=== PATIENT | female | born 1985 | race Caucasian/White ===

== ENCOUNTER 2020-12-24 03:40 | Inpatient (IN) | payer SELFPAY ==
[2020-12-24 03:55] VITALS: BP 133/83; PULSE 76; RESP 18; TEMP 36.4; O2SAT 96
[2020-12-24 04:17] VITALS: BMI 19.3
[2020-12-24 06:00] VITALS: BP 133/83; PULSE 76; RESP 18; TEMP 36.4
--- NOTE | 2020-12-24 06:54 | PC.NURSE ---
35/F SI VOLUNTARY DIRECT ADMIT FROM [facility] NO HEROIN DETECTED IN UDS / +METH PT IS DEPRESSED AND SI, STATES THAT SHE INGESTED HEROIN IN ATTEMPT TO END HER LIFE. PT HAS HX OF BORDERLINE PERSONALITY DISORDER, OCD, AGORAPHOBIA, DEPRESSION, AND SUFFERS FROM ANXIETY ATTACKS OFTEN. HAS EXTENSIVE DRUG ABUSE HX. REPORTS LOSING HER SON A YEAR AGO TO HER PARENTS WHO HAVE SINCE ADOPTED HIM AND REFUSE TO ALLOW HER TO HAVE VISITATION. PT REPORTS THE FINANCIAL CONTROL OF HER AND FEARS THE IMPENDING EVICTION THEY ARE FACING. PT STATES HER RELATIONSHIP IS OVER, ?HER HAS NOW LEFT HER AND THERE IS NOTHING LEFT FOR HER TO LIVE FOR.? PT HAS HAD A GASTRIC SLEEVE,(NO NSAIDS) SHE IS ANEMIC, HAIR IS FALLING OUT AND TEETH ARE LOOSE D/T MALNOURISHMENT, REPORTS CONSTIPATION AND NO BM IN 2 WEEKS DESPITE THE USE OF MIRALAX. PT HAS A WBC OF 19.4 AT [facility] ON ADMIT, IT IS DOWN TO 10.4
[2020-12-24 13:39] VITALS: BP 130/78; PULSE 95; RESP 16; TEMP 36.3; O2SAT 99
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
[2020-12-24] MEDS: ondansetron 4 MG Tablet PO (20:23)
[2020-12-24 22:00] VITALS: BP 121/86; PULSE 79; RESP 17; TEMP 37.2; O2SAT 97
[2020-12-24] MEDS: hyDROXYzine 25 mg Capsule 50 MG PO (23:36)
[2020-12-24] MEDS: trazodone 50 mg Tablet PO (23:37)
--- NOTE | 2020-12-24 23:41 | PC.NURSE ---
Patient given Vistaril 50 mg po for complaint of anxiety and Trazodone 50 mg po for complaint of insomnia. Also given a snack per her request.
[2020-12-25 06:00] VITALS: BP 124/82; PULSE 84; RESP 17; TEMP 36.7; O2SAT 98
[2020-12-25] MEDS: sertraline 50 mg Tablet PO (08:44)
[2020-12-25 14:00] VITALS: BP 124/82; PULSE 84; RESP 17; TEMP 36.7; O2SAT 98
--- NOTE | 2020-12-25 15:30 | PM.NPN ---
Subjective NPU Subjective: Interval history: The patient is only somewhat cooperative with the exam today. She says that she is in an irritable mood, but not feeling depressed. She did not sleep well and is tired. She denies suicidal and homicidal ideation. She has no medication side effects after starting on Zoloft. Mental Status Exam MSE Comments: I met with the patient in their room, and she stated laying in bed with minimal responses throughout the entirety of the exam. She minimizes any difficulties which brought her into the hospital, and feels that she does not need treatment. No psychomotor agitation or retardation Speech is quiet Alert, oriented to person and situation Attention and concentration were only fair. Memory is adequate for the interview Mood is irritable. Affect is when resistant. Thought process is logical and goal directed. Thought content No auditory or visual hallucinations, no suicidal ideation or homicidal ideation. Insight and judgment are limited. She is in denial of her psychiatric issues. Vitals/I&O/Wt Last Vital Signs Temp 98.0 F 12/25/20 14:00 Pulse 84 12/25/20 14:00 Resp 17 12/25/20 14:00 BP 124/82 12/25/20 14:00 Pulse Ox 98 12/25/20 14:00 Weight last 48 hrs Weight 61.235 kg A&P Assessment and plan (1) Major depressive disorder, recurrent, severe w/o psychotic behavior: Status: Acute (2) Suicide attempt by heroin overdose: Status: Acute (3) Heroin abuse: Status: Acute (4) Marijuana abuse: Status: Acute (5) Borderline personality disorder: Status: Acute Additional A&P Information The patient is a 35-year-old woman with major depression, and heroin and marijuana use disorder, who has a generalized sense of helplessness about all of the tasks required for managing her life. She feels overwhelmed and victimized and unable to care for herself. She is willing to take medication and to attend substance use rehab. 1. Start Zoloft 50 mg daily for depression. Pt understands risks, benefits, side effects and consents. 2. Continue every 15 minute checks for safety. 3. Encourage individual, group and milieu therapies. 4. Encourage sober living treatment after discharge at the highest level of care to which he is willing to commit. Involuntary Hold Information 96 Hour Hold: 96 Hour Involuntary Admission: No Attestations NPU Medical Necessity Statement*: Psychiatric hospitalization is medically necessary to prevent access to lethal means, to reevaluate medication, and to coordinate a safe discharge. Likely length of stay is 2-4 days. Coding Level of Care Code Acute Assembly Lead Person for g Fwd Diagnoses Major depressive disorder, recurrent, severe w/o psychotic behavior F33.2 Suicide attempt by heroin overdose T40.1X2A Heroin abuse F11.10 Marijuana abuse F12.10 Borderline personality disorder F60.3
[2020-12-25 20:15] VITALS: BP 122/78; PULSE 80; RESP 17; TEMP 36.6; O2SAT 97
[2020-12-25] MEDS: hyDROXYzine 25 mg Capsule 50 MG PO (21:28)
[2020-12-25] MEDS: trazodone 50 mg Tablet PO (21:28)
--- NOTE | 2020-12-25 21:35 | PC.NURSE ---
Trazodone 50mg and Vistaril 50mg given per patient request for sleep and anxiety.
[2020-12-26 06:00] VITALS: BP 138/89; PULSE 78; RESP 16; TEMP 36.6; O2SAT 98
[2020-12-26] MEDS: sertraline 50 mg Tablet PO (08:28)
[2020-12-26] MEDS: ondansetron 4 MG Tablet PO (08:34)
--- NOTE | 2020-12-26 08:34 | PC.NURSE ---
Addendum entered by Nina Stephenson RN 12/26/20 10:01: Patients nausea is better. Original Note: Patient stated that she was sick to her stomach and had one emesis, not seen by this nurse. PRN zofran administered.
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
[2020-12-26 14:00] VITALS: BP 118/74; PULSE 71; RESP 18; TEMP 36.6; O2SAT 98
[2020-12-26 20:30] VITALS: BP 111/73; PULSE 75; RESP 17; TEMP 37.1; O2SAT 98
[2020-12-26] MEDS: hyDROXYzine 25 mg Capsule 50 MG PO (21:14)
[2020-12-26] MEDS: trazodone 50 mg Tablet PO (21:14)
[2020-12-26] MEDS: OLANZapine 5 mg ODT PO (21:15)
--- NOTE | 2020-12-26 21:20 | PC.NURSE ---
Patient communicated that she was very anxious and getting agitated. She stated that she has had difficulty sleeping and adjusting to NPU schedule. She requested Medication for sleep anxiety and agitation. Patient given 50mg Vistaril PO, 50mg Trazodone PO and 5mg Zyprexa PO.
--- NOTE | 2020-12-26 22:30 | PC.NURSE ---
Patient came to nurses station C/O continued inability to go to sleep. Nurse suggested that she continue to lay down for a while and try to relax for a while longer. Patient was acceptable to that.
--- NOTE | 2020-12-26 23:15 | PC.NURSE ---
Patient came to nurses station more anxious and agitated requesting SOMETHING to help her sleep.
[2020-12-26] MEDS: haloperidol 5 mg Tablet PO (23:21)
--- NOTE | 2020-12-26 23:25 | PC.NURSE ---
At 23:21 5mg Haldol PO given for increased agitation and anxiousness.
[2020-12-27 06:00] VITALS: BP 125/80; PULSE 80; RESP 17; TEMP 36.6; O2SAT 97
[2020-12-27] MEDS: sertraline 50 mg Tablet PO (09:05)
--- NOTE | 2020-12-27 11:52 | P.PN_ITS ---
Subjective NPU Subjective: Interval history: I met with the patient in the day room, and she was still sleepy and not very responsive. She says that her mood continues to be quite poor and she feels quite hopeless about her future. She says she did sleep better last night. Energy and motivation are still low. She denies feeling suicidal. She still feels that the Zoloft has been helpful for her. I told her that the nurses reported that yesterday evening she was much more talkative and even upbeat. She agreed that she had felt that way yesterday evening, and says she has much more energy in the afternoons than in the morning. She said she did not have any more diarrhea yesterday afternoon or today. I talked with her about her disposition. I recommended that she go to rehab treatment. I explained my rationale. She did not respond 1 way or another to those suggestions. Mental Status Exam MSE Comments: I met with the patient in the day room, and she was again withdrawn and not very communicative. Eye contact is still poor. She gets reactive when she feels that she has not been heard, understood or remembered. For example when I asked her about her diarrhea, she snapped that she had told me that yesterday. I explained that I was asking how her stomach was doing since that time, and she continued to have an irritable attitude. She has psychomotor retardation today. Speech is quiet and it looks like it takes her effort to form her words. Alert, oriented to person and situation Attention and concentration were only fair. Memory is adequate for the interview Mood is irritable. Affect is irritable as well. Thought process is logical and goal directed. Thought content No auditory or visual hallucinations, no suicidal ideation or homicidal ideation. There are no delusions noted. Insight and judgment are limited. Vitals/I&O/Wt Last Vital Signs Temp 98.4 F 12/28/20 06:00 Pulse 81 12/28/20 06:00 Resp 17 12/28/20 06:00 BP 123/85 12/28/20 06:00 Pulse Ox 98 12/28/20 06:00 Weight last 48 hrs Weight 61.235 kg A&P Assessment and plan (1) Borderline personality disorder: Status: Acute (2) Marijuana abuse: Status: Acute (3) Heroin abuse: Status: Acute (4) Major depressive disorder, recurrent, severe w/o psychotic behavior: Status: Acute (5) Suicide attempt by heroin overdose: Status: Acute Additional A&P Information The patient is a 35-year-old woman with major depression, and heroin and marijuana use disorder, who has a generalized sense of helplessness about all of the tasks required for managing her life. She feels overwhelmed and victimized and unable to care for herself. She is willing to take medication and to attend substance use rehab. 1. We continue to recommend that she go to rehab. 2. Started Zoloft 50 mg daily for depression. No side effects so far. Patient feels it may be beginning to help. She feels she has more clarity of thinking now. 3. Continue every 15 minute checks for safety. 4. Encourage individual, group and milieu therapies. 5. Encourage sober living treatment after discharge at the highest level of care to which he is willing to commit. Involuntary Hold Information 96 Hour Hold: 96 Hour Involuntary Admission: No Attestations NPU Medical Necessity Statement*: Psychiatric hospitalization is medically necessary to prevent access to lethal means, to reevaluate medication, and to coordinate a safe discharge. Likely length of stay is 1-3 days. Coding Level of Care Code Acute Medical Case Manager for [employer] Diagnoses Borderline personality disorder F60.3 Marijuana abuse F12.10 Heroin abuse F11.10 Major depressive disorder, recurrent, severe w/o psychotic behavior F33.2 Suicide attempt by heroin overdose T40.1X2A
[2020-12-27 14:00] VITALS: BP 127/80; PULSE 72; RESP 18; TEMP 37.2; O2SAT 97
[2020-12-27] MEDS: trazodone 50 mg Tablet PO (20:29)
[2020-12-27] MEDS: hyDROXYzine 25 mg Capsule 50 MG PO (20:30)
--- NOTE | 2020-12-27 21:08 | PC.NURSE ---
pt requested meds they gave me last night that helped me sleep. Trazodone 50mg po and vistaril 50mg po given. pt voiced wanting the medicine that disolves under my tongue. advised pt protocol dictates that med (zyprexa zidis) be given only if vistaril did not work for anxiety. pt voiced understanding.
[2020-12-27 21:14] VITALS: BP 132/90; PULSE 86; RESP 17; TEMP 36.8; O2SAT 98
[2020-12-27] MEDS: OLANZapine 5 mg ODT PO (21:52)
--- NOTE | 2020-12-27 22:14 | PC.NURSE ---
pt somberly comes to nurses desk, is it time i can get the pill that disolves yet? Zyprexa zydis 5mg sl given.
[2020-12-28 06:00] VITALS: BP 123/85; PULSE 81; RESP 17; TEMP 36.9; O2SAT 98
[2020-12-28] MEDS: sertraline 50 mg Tablet PO (08:12)
[2020-12-28 13:26] VITALS: BP 124/82; PULSE 79; RESP 17; TEMP 36.9; O2SAT 99
--- NOTE | 2020-12-28 14:35 | NPU.GN ---
[facility] Unit Group Topic:Coping skills for stress General Mood of Group: Ana refused group today, laying down resting in bed.
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
[2020-12-28] MEDS: nicotine 2 mg Gum BUCCAL (15:55)
[2020-12-28 16:02] VITALS: BP 124/82; PULSE 79; RESP 17; TEMP 36.9; O2SAT 99
== END 2020-12-28 17:22 | disposition home or self-care (01) | DRG 885 ==
PROVIDERS: Admitting Provider Psychiatry & Neurology Child & Adolescent Psychiatry; Visit Provider Psychiatry & Neurology Child & Adolescent Psychiatry
DX: F33.2 Major depressive disorder, recurrent severe without psychotic features (principal); F60.3 Borderline personality disorder; F11.14 Opioid abuse with opioid-induced mood disorder; F12.10 Cannabis abuse, uncomplicated; F17.210 Nicotine dependence, cigarettes, uncomplicated; Z91.5 Personal history of self-harm; Z63.5 Disruption of family by separation and divorce; Z98.84 Bariatric surgery status; Z63.79 Other stressful life events affecting family and household
CPT/HCPCS: Q0162